=== PATIENT | male | born 1970 | race Caucasian/White ===

== ENCOUNTER 2017-07-07 15:58 | Emergency (ER) | payer OTHER ==
[2017-07-07 18:16] VITALS: BP 132/99
--- NOTE | 2017-07-07 18:23 | RAD ---
Indication: Cough. 2 views of the chest including dual energy PA views demonstrate no mediastinal shift. Heart is of normal size and configuration. Lung bauer show no pleural fluid, pneumonia or pneumothorax. IMPRESSION: No active cardiopulmonary disease is noted.
--- NOTE | 2017-07-07 18:42 | UC ---
Respiratory Complaint HPI - HPI Summary HPI Summary: cough x 4 days nasal congestion , no fever, no chills, + body aches - History of Current Complaint Chief Complaint: UCRespiratory Stated Complaint: LOWER BACK PAIN/COLD SYMPTOMS Time Seen by Provider: 07/07/17 17:42 Hx Obtained From: Patient Onset/Duration: Gradual Onset, Lasting Days - 4, Still Present Timing: Constant Severity Initially: Moderate Severity Currently: Moderate Character: Cough: Nonproductive Aggravating Factors: Exertion, Deep Breaths Alleviating Factors: Nothing Associated Signs And Symptoms: Positive: Wheezing, URI, Nasal Congestion. Negative: Dyspnea, Fever, Chills - Allergies/Home Medications Allergies/Adverse Reactions: Allergies Allergy/AdvReac Type Severity Reaction Status Date / Time No Known Allergies Allergy Verified 07/07/17 16:28 Home Medications: Home Medications Nicotine Patch Removal NOTE* 1 note PATCH OFF DAILY 07/07/17 [History Confirmed 07/07/17] PMH/Surg Hx/FS Hx/Imm Hx Previously Healthy: Yes - Surgical History Surgical History: None - Family History Known Family History: Negative: Diabetes - Social History Alcohol Use: None Substance Use Type: None Smoking Status (MU): Heavy Every Day Tobacco Smoker Type: Cigarettes Amount Used/How Often: 1 pack dialy/ 25 years Review of Systems Constitutional: Negative Skin: Negative Eyes: Negative ENT: Nasal Discharge Respiratory: Cough Cardiovascular: Negative Is Patient Immunocompromised?: No All Other Systems Reviewed And Are Negative: Yes Physical Exam Triage Information Reviewed: Yes Appearance: Well-Appearing, No Pain Distress, Well-Nourished Vital Signs: Initial Vital Signs Temp 98.6 F 07/07/17 16:24 Pulse 93 07/07/17 16:24 Resp 17 07/07/17 16:24 BP 115/93 07/07/17 16:24 Pulse Ox 96 07/07/17 16:24 Vital Signs Reviewed: Yes Eyes: Positive: Conjunctiva Clear ENT: Positive: Normal ENT inspection, Hearing grossly normal, Pharynx normal, Nasal congestion, Nasal drainage Neck: Positive: Supple, Nontender, No Lymphadenopathy Respiratory: Positive: Chest non-tender, Wheezing Cardiovascular: Positive: RRR, No Murmur, Pulses Normal Skin Exam: Normal UC Diagnostic Evaluation - Laboratory O2 Sat by Pulse Oximetry: 96 - Radiology Xray Interpretation: No Acute Changes Respiratory Course/Dx - Differential Dx/Diagnosis Provider Diagnoses: bronchitis Discharge - Discharge Plan Condition: Stable Disposition: HOME Prescriptions: Albuterol HFA INHALER* [Ventolin HFA Inhaler*] 2 puff INH Q4H PRN #1 mdi PRN Reason: Wheezing Azithromycin TAB* [Zithromax TAB (Z-AMIE) 250 mg #6 tabs] 2 tab PO .TODAY, THEN 1 DAILY #1 amie Guaifenesin-Codeine [Cheratussin AC] 10 ml PO Q8H PRN #120 ml MDD 30 ml PRN Reason: Cough Patient Education Materials: Acute Bronchitis (ED) Forms: *Work Release Referrals: Prince Stevenson MD [Primary Care Provider] - If Needed
== END 2017-07-07 18:40 | disposition home or self-care (01) ==
LOC: UCCORT 15:58
DX: J40 Bronchitis, not specified as acute or chronic (principal); F17.210 Nicotine dependence, cigarettes, uncomplicated
CPT/HCPCS: 71020; 99212; G0463

== ENCOUNTER 2019-03-05 16:30 | Emergency (ER) | payer OTHER ==
--- NOTE | 2019-03-05 16:58 | UC ---
Ear Complaint HPI - HPI Summary HPI Summary: 48 yo male presents with LEFT ear pain since yesterday. He tells me that yesterday he developed left ear pain and feels that there is fluid inside. Has tried to flush his ear with warm water and used q-tips with no relief. Denies sinus symptoms, fever, chills, sore throat, cough. No injury to the area. Did go swimming, but that was a month ago. - History of Current Complaint Stated Complaint: LEFT EAR PAIN Time Seen by Provider: 03/05/19 16:57 Hx Obtained From: Patient Onset/Duration: Sudden Onset Severity Initially: Moderate Severity Currently: Moderate Pain Intensity: 6 Pain Scale Used: 0-10 Numeric - Allergies/Home Medications Allergies/Adverse Reactions: Allergies Allergy/AdvReac Type Severity Reaction Status Date / Time No Known Allergies Allergy Verified 10/03/18 16:05 Home Medications: Home Medications Amoxicillin PO (*) [Amoxicillin 875 MG (*)] 875 mg PO ONCE 03/05/19 [History Confirmed 03/05/19] Phenylephrine HCl/Acetaminophn [Sinus Pressure/Pain/Adult 5-325 mg] 1 tab PO ONCE 03/05/19 [History Confirmed 03/05/19] PMH/Surg Hx/FS Hx/Imm Hx Psychological History: Anxiety, Depression - Surgical History Surgical History: None - Family History Known Family History: Positive: Cardiac Disease Negative: Diabetes - Social History Lives: With Family Alcohol Use: Occasionally Substance Use Type: None Smoking Status (MU): Heavy Every Day Tobacco Smoker Type: Cigarettes Amount Used/How Often: 1PPD x 25 years Review of Systems All Other Systems Reviewed And Are Negative: Yes Constitutional: Positive: Negative Skin: Positive: Negative Eyes: Positive: Negative ENT: Positive: Ear Ache Respiratory: Positive: Negative Cardiovascular: Positive: Negative Gastrointestinal: Positive: Negative Neurological: Positive: Negative Psychological: Positive: Negative Physical Exam - Summary Physical Exam Summary: GENERAL: NAD. WDWN. No pain distress. SKIN: No rashes, sores, lesions, or open wounds. HEENT: Head: AT/NC Eyes: EOM intact. Conjunctiva clear without inflammation or discharge. Ears: Hearing grossly normal. Left ear canal with moderate edema and mild white thick discharge. Mild TTP with auricular manipulation. TM intact. No mastoid tenderness. Nose: Nasal mucosa pink and moist. NTTP maxillary and frontal sinus. Throat: Posterior oropharynx without exudates, erythema, or tonsillar enlargement. Uvula midline. NECK: Supple. Nontender. No lymphadenopathy. CHEST: CTAB. No r/r/w. No accessory muscle use. Breathing comfortably and in no distress. CV: RRR. Without m/r/g. Pulses intact. NEURO: Alert. PSYCH: Age appropriate behavior. Triage Information Reviewed: Yes Vital Signs: Vital Signs: Temp Pulse Resp BP Pulse Ox 98.1 F 67 18 141/76 98 03/05/19 17:03 03/05/19 17:03 03/05/19 17:03 03/05/19 17:03 03/05/19 17:03 Vital Signs Reviewed: Yes Ear Complaint Course/Dx - Course Course Of Treatment: Left otitis externa - Differential Dx/Diagnosis Provider Diagnosis: Otitis externa Discharge - Sign-Out/Discharge Documenting (check all that apply): Patient Departure All imaging exams completed and their final reports reviewed: No Studies - Discharge Plan Condition: Stable Disposition: HOME Prescriptions: Ofloxacin 0.3% (Ear Drop)* [Floxin 0.3% OTIC.PRINCE (Ear Drop)] 5 drop LEFT EAR BID #1 btl Patient Education Materials: Otitis Externa (ED) Referrals: Prince Stevenson MD [Primary Care Provider] - Additional Instructions: If you develop a fever, shortness of breath, chest pain, new or worsening symptoms - please call your PCP or go to the ED immediately. Your blood pressure was high at todays visit. Please see your primary provider within 4 weeks for recheck and re-evaluation. - Billing Disposition and Condition Condition: STABLE Disposition: Home
[2019-03-05 17:07] VITALS: BP 141/76
== END 2019-03-05 17:17 | disposition home or self-care (01) ==
LOC: UCCORT 16:30
DX: H60.92 Unspecified otitis externa, left ear (principal); F17.210 Nicotine dependence, cigarettes, uncomplicated
CPT/HCPCS: 99212; G0463

== ENCOUNTER 2019-03-07 09:42 | Emergency (ER) | payer OTHER ==
[2019-03-07 11:22] VITALS: BP 148/92
--- NOTE | 2019-03-07 11:52 | UC ---
Ear Complaint HPI - HPI Summary HPI Summary: 48 yo male presents with left ear pain. I saw the pt 2 days ago for the same complaint and he had moderate canal edema with drainage and was dx'd with otitis externa. I placed him on ofloxacin ear drops which he has been using BID. Today he presents because his pain has not changed and he thinks his ear is more swollen. He denies fever, jaw pain, sore throat. - History of Current Complaint Chief Complaint: UCEar Stated Complaint: LT EAR PAIN Time Seen by Provider: 03/07/19 11:52 Hx Obtained From: Patient Onset/Duration: Gradual Onset Severity Initially: Moderate Severity Currently: Moderate Pain Intensity: 6 Pain Scale Used: 0-10 Numeric - Allergies/Home Medications Allergies/Adverse Reactions: Allergies Allergy/AdvReac Type Severity Reaction Status Date / Time No Known Allergies Allergy Verified 03/07/19 11:12 Home Medications: Home Medications Ibuprofen TAB* [Motrin TAB* 800 MG] 800 mg PO Q4HR PRN 03/07/19 [History Confirmed 03/07/19] PMH/Surg Hx/FS Hx/Imm Hx Psychological History: Anxiety, Depression - Surgical History Surgical History: None - Family History Known Family History: Positive: Cardiac Disease Negative: Diabetes - Social History Occupation: Employed Full-time Lives: With Family Alcohol Use: Rare Substance Use Type: None Smoking Status (MU): Heavy Every Day Tobacco Smoker Type: Cigarettes Amount Used/How Often: 1PPD x 25 years Length of Time of Smoking/Using Tobacco: since age 15. Review of Systems All Other Systems Reviewed And Are Negative: Yes Constitutional: Positive: Negative Skin: Positive: Negative Eyes: Positive: Negative ENT: Positive: Ear Ache Respiratory: Positive: Negative Cardiovascular: Positive: Negative Gastrointestinal: Positive: Negative Neurovascular: Positive: Negative Neurological: Positive: Negative Psychological: Positive: Negative Physical Exam - Summary Physical Exam Summary: GENERAL: NAD. WDWN. No pain distress. SKIN: No rashes, sores, lesions, or open wounds. HEENT: Head: AT/NC Eyes: EOM intact. Conjunctiva clear without inflammation or discharge. Ears: Hearing grossly normal. LEFT ear canal with moderate canal edema and mild white discharge. Pinna with mild edema. No mastoid tenderness. TM intact. Right ear WNL and TM intact. Nose: Nasal mucosa pink and moist. NTTP maxillary and frontal sinus. Throat: Posterior oropharynx without exudates, erythema, or tonsillar enlargement. Uvula midline. NECK: Supple. Nontender. No lymphadenopathy. CHEST: CTAB. No r/r/w. No accessory muscle use. Breathing comfortably and in no distress. CV: RRR. Without m/r/g. Pulses intact. NEURO: Alert. PSYCH: Age appropriate behavior. Triage Information Reviewed: Yes Vital Signs: Initial Vital Signs Temp 98.3 F 03/07/19 11:18 Pulse 68 03/07/19 11:18 Resp 18 03/07/19 11:18 BP 148/92 03/07/19 11:18 Pulse Ox 96 03/07/19 11:18 Vital Signs Reviewed: Yes Ear Complaint Course/Dx - Course Course Of Treatment: Given his, relatively, unchanged symptoms despite anbx and now with some ear edema - an ear wick was placed and cipro drops instilled. I will place him on Augmentin and change his ear drops to ciprodex. Advised that if he develops a fever, worsening swelling/pain, or develops jaw pain to go to the ER for further eval. - Differential Dx/Diagnosis Provider Diagnosis: Otitis externa Discharge - Sign-Out/Discharge Documenting (check all that apply): Patient Departure All imaging exams completed and their final reports reviewed: No Studies - Discharge Plan Condition: Stable Disposition: HOME Prescriptions: Amoxicillin/Clavulanate TAB* [Augmentin TAB 875*] 875 mg PO BID #14 tab Ciproflox/Dexameth OTIC.SUSP* [Ciprodex OTIC.SUSP*] 4 drop LEFT EAR BID #1 bottle Patient Education Materials: Otitis Externa (ED) Referrals: Prince Stevenson MD [Primary Care Provider] - Additional Instructions: If you develop a fever, shortness of breath, chest pain, new or worsening symptoms - please call your PCP or go to the ED immediately. Your blood pressure was high at todays visit. Please see your primary provider within 4 weeks for recheck and re-evaluation. Use the ear drops as directed with the ear wick in place for 2 days and then may remove the ear wick. If your ear swells, you have increased pain, or if you develop a fever - please go to the ER for further evaluation - Billing Disposition and Condition Condition: STABLE Disposition: Home
[2019-03-07] MEDS ORDERED: Ciprofloxacin 0.3% OPTH.SOL* BTL LEFT EYE ONE (11:59)
== END 2019-03-07 12:30 | disposition home or self-care (01) ==
LOC: UCCORT 09:42
DX: Z51.89 Encounter for other specified aftercare (principal); H60.92 Unspecified otitis externa, left ear; F17.210 Nicotine dependence, cigarettes, uncomplicated
CPT/HCPCS: 99212; A9270-GY; G0463